=== PATIENT | female | born 1960 | race American Indian/Alaskan Native ===

== ENCOUNTER 2017-11-08 19:38 | Emergency (ER) | payer BC, OTHER ==
[2017-11-08 21:30] VITALS: BP 158/90
[2017-11-08] MEDS ORDERED: BOOSTRIX IM ONE (23:50)
--- NOTE | 2017-11-08 23:52 | Emergency Department Report ---
ED Medical Clearance HPI - General Chief complaint: Medical Clearance Stated complaint: STUCK WITH NEEDLE AFTER GIVING INJECTION Time Seen by Provider: 11/08/17 23:48 Source: patient Mode of arrival: Ambulatory - History of Present Illness Initial comments: 57-year-old female comes in states that she got stuck with a needle while she was at work today at [facility]. Patient states that she was told to come here for a tetanus shot by her employer. Patient has no other complaints at this time. She reports that she will go to primary care provider for further testing. Reason for Medical Clearance: other (tetanus shot) Alledged Intoxication: No Compliant with Home Medications: Yes Treatments Prior to Arrival: none Allergies/Adverse reactions: Allergies Allergy/AdvReac Type Severity Reaction Status Date / Time codeine Allergy Nausea Verified 11/08/17 21:30 Fish Containing Products Allergy Shortness Verified 11/08/17 21:30 of Breath ED Review of Systems ROS: Stated complaint: STUCK WITH NEEDLE AFTER GIVING INJECTION Other details as noted in HPI Comment: All other systems reviewed and negative ED Past Medical Hx - Past Medical History Previous Medical History?: Yes Hx Hypertension: Yes Hx GERD: Yes - Surgical History Past Surgical History?: Yes Additional Surgical History: tubal ligation - Social History Smoking Status: Never Smoker Substance Use Type: None ED Physical Exam - General Limitations: No Limitations General appearance: alert, in no apparent distress - Eye Eye exam: Present: EOMI - ENT ENT exam: Present: mucous membranes moist - Respiratory Respiratory exam: Present: normal lung sounds bilaterally. Absent: respiratory distress - Cardiovascular Cardiovascular Exam: Present: regular rate, normal rhythm. Absent: systolic murmur, diastolic murmur, rubs, gallop - Neurological Exam Neurological exam: Present: alert, oriented X3 - Psychiatric Psychiatric exam: Present: normal affect, normal mood - Skin Skin exam: Present: warm, dry, intact, normal color. Absent: rash ED Course Vital Signs 11/08/17 21:13 Temperature 98.1 F Pulse Rate 91 H Respiratory 17 Rate Blood Pressure 158/90 O2 Sat by Pulse 99 Oximetry ED Medical Decision Making - Medical Decision Making Patient has been evaluated by this provider fast track. Patient comes in for tetanus vaccination. She was sent here by her employer. Patient will follow-up with her primary care provider for further testing. ED Disposition Clinical Impression: Need for prophylactic vaccination with tetanus toxoid alone Disposition: DC- TO HOME OR SELFCARE Is pt being admited?: No Does the pt Need Aspirin: No Condition: Stable Instructions: Diphtheria Tetanus and Pertussis Vaccination (ED) Additional Instructions: Please follow up with her primary care provider for further testing and treatment. Forms: Work/School Release Form(ED)
== END 2017-11-09 00:50 | disposition home or self-care (01) ==
LOC: ED 19:38
DX: Z23 Encounter for immunization (principal); I10 Essential (primary) hypertension; K21.9 Gastro-esophageal reflux disease without esophagitis; Z98.51 Tubal ligation status; Z88.5 Allergy status to narcotic agent; Z91.013 Allergy to seafood
CPT/HCPCS: 90471; 90715; 99282